=== PATIENT | female | born 1960 | race Caucasian/White ===

== ENCOUNTER → 2017-03-05 10:02 | Outpatient (CLI) | payer BC | END | disposition home or self-care (01) | LOC: D.CT 10:02 | DX: J44.9 Chronic obstructive pulmonary disease, unspecified (principal) ==

== ENCOUNTER 2017-05-20 10:43 | Emergency (ER) | payer BC ==
[2017-05-20 11:44] LABS: BASOPHILS 0.4 % (0-2); HEMATOCRIT 35.5 % (36.0-48.0); HEMOGLOBIN 11.9 g/dL (12-16); IMMATURE GRANULOCYTES 0.4 % (0-5); LYMPHOCYTES 27.3 % (15-50); MCH 30.6 pg (26.0-34.0); MCHC 33.5 g/dL (31.0-37.0); MCV 91.3 fL (80.0-100.0); MEAN PLATELET VOLUME 10.2 fL (7.4-10.4); MONOCYTES 7.4 % (2-11); NEUTROPHILS 60.5 % (40-80); PLATELET COUNT 245 10x3/uL (130-400); RBC 3.89 10x6/uL (4.00-5.40); WBC 5.5 10x3/uL (4.8-10.8)
[2017-05-20 12:03] LABS: ALBUMIN 3.8 g/dL (3.4-5.0); ALKALINE PHOSPHATASE 37 U/L (46-116); ALT (SGPT) 46 U/L (10-68); CALC OSMOLALITY 274 mosm/kg (275-300); CALCIUM 8.5 mg/dL (8.5-10.1); CARBON DIOXIDE 25.7 mmol/L (21.0-32.0); CHLORIDE - SERUM 102 mmol/L (98-107); CREATININE - SERUM 0.8 mg/dL (0.6-1.3); GLUCOSE 110 mg/dL (74-106); POTASSIUM - SERUM 3.6 mmol/L (3.5-5.1); PROTEIN - SERUM 7.1 g/dL (6.4-8.2); SODIUM 136 mmol/L (136-145); UREA NITROGEN 17 mg/dL (7-18); eGFR NON AFRICAN AMERICAN 78 mL/min (90-120)
== END 2017-05-20 16:16 | disposition home or self-care (01) ==
LOC: D.ER 10:43
PROVIDERS: Emergency Medicine
DX: R55 Syncope and collapse (principal); W19.XXXA Unspecified fall, initial encounter; Y93.89 Activity, other specified; Y92.89 Other specified places as the place of occurrence of the external cause; F31.89 Other bipolar disorder; E11.9 Type 2 diabetes mellitus without complications

== ENCOUNTER → 2018-03-10 18:08 | Outpatient (CLI) | payer BC ==
[~2018-03-10 18:08] MED LIST: ATIVAN1 MG PO; FOLIC ACID1 MG PO; OMEPRAZOLE20 M1 PO; PAXIL40 MG PO; SEROQUEL XR400 M1 PO; TRICOR145 MG PO
== END | disposition home or self-care (01) ==
LOC: D.MAMMO 03-04 14:00
DX: Z12.31 Encounter for screening mammogram for malignant neoplasm of breast (principal)

== ENCOUNTER 2018-05-08 08:34 | Emergency (ER) | payer BC ==
[~2018-05-08] VITALS: Ht 157.5 cm; Wt 79.5 kg
[2018-05-08 08:35] VITALS: Ht 157.5 cm; Wt 79.5 kg
[2018-05-08] MEDS ORDERED: PAXIL40 MG PO (08:36)
[2018-05-08] MEDS ORDERED: TRICOR145 MG PO (08:37)
[2018-05-08] MEDS ORDERED: OMEPRAZOLE20 M1 PO (08:37)
[2018-05-08] MEDS ORDERED: SEROQUEL XR400 M1 PO (08:38)
[2018-05-08] MEDS ORDERED: ATIVAN1 MG PO (08:39)
[2018-05-08] MEDS ORDERED: FOLIC ACID1 MG PO (08:40)
[2018-05-08 09:13] LABS: EOSINOPHILS 5.2 % (0-7); HEMATOCRIT 40.3 % (36.0-48.0); HEMOGLOBIN 14.2 g/dL (12-16); IMMATURE GRANULOCYTES 0.7 % (0-5); MCH 31.9 pg (26.0-34.0); MCHC 35.2 g/dL (31.0-37.0); MCV 90.6 fL (80.0-100.0); MEAN PLATELET VOLUME 9.9 fL (7.4-10.4); MONOCYTES 6.4 % (2-11); NEUTROPHILS 49.7 % (40-80); RBC 4.45 10x6/uL (4.00-5.40); RDW 12.8 % (11.5-14.5); WBC 5.8 10x3/uL (4.8-10.8)
[2018-05-08 09:20] LABS: PLATELET COUNT 302 10x3/uL (130-400)
[2018-05-08 09:29] LABS: ALBUMIN 4.1 g/dL (3.4-5.0); ALKALINE PHOSPHATASE 59 U/L (46-116); ALT (SGPT) 26 U/L (10-68); BILIRUBIN - TOTAL 0.18 mg/dL (0.2-1.3); CALC OSMOLALITY 278 mosm/kg (275-300); CALCIUM 8.7 mg/dL (8.5-10.1); CARBON DIOXIDE 27.8 mmol/L (21.0-32.0); CHLORIDE - SERUM 103 mmol/L (98-107); CREATININE - SERUM 0.5 mg/dL (0.6-1.3); GLUCOSE 115 mg/dL (74-106); POTASSIUM - SERUM 3.7 mmol/L (3.5-5.1); SODIUM 141 mmol/L (136-145); UREA NITROGEN 5 mg/dL (7-18); eGFR NON AFRICAN AMERICAN > 90 mL/min (90-120)
[2018-05-08 09:35] LABS: APPEARANCE CLEAR (CLEAR); BILIRUBIN NEGATIVE (NEGATIVE); COLOR YELLOW (YELLOW); GLUCOSE NEGATIVE (NEGATIVE); KETONE NEGATIVE (NEGATIVE); NITRITE NEGATIVE (NEGATIVE); PROTEIN NEGATIVE (NEGATIVE); SPECIFIC GRAVITY 1.005 (1.005-1.020); UROBILINOGEN NORMAL (NORMAL)
[2018-05-08 09:39] LABS: UDS - AMPHET NEGATIVE QUAL (NEGATIVE); UDS - BARB NEGATIVE QUAL (NEGATIVE); UDS - BENZO NEGATIVE QUAL (NEGATIVE); UDS - COCAINE NEGATIVE QUAL (NEGATIVE); UDS - OPIATE NEGATIVE QUAL (NEGATIVE); UDS - PCP NEGATIVE QUAL (NEGATIVE); UDS - THC NEGATIVE QUAL (NEGATIVE)
[2018-05-08 17:58] VITALS: BP 128/83
== END 2018-05-08 17:58 | disposition home or self-care (01) ==
LOC: D.ER 08:34
PROVIDERS: Family Medicine
DX: F10.129 Alcohol abuse with intoxication, unspecified (principal); K21.9 Gastro-esophageal reflux disease without esophagitis

== ENCOUNTER 2019-06-02 06:36 | Emergency (ER) | payer BC ==
[~2019-06-02] VITALS: Ht 157.5 cm; Wt 68.5 kg
[2019-06-02 06:40] VITALS: Ht 157.5 cm; Wt 68.5 kg
[2019-06-02] MEDS ORDERED: HYDROCODONE-A1 UDTA2 PO (07:13)
[2019-06-02 08:12] VITALS: BP 117/83
== END 2019-06-02 08:13 | disposition home or self-care (01) ==
LOC: D.ER 06:36
DX: S82.832A Other fracture of upper and lower end of left fibula, initial encounter for closed fracture (principal); W18.31XA Fall on same level due to stepping on an object, initial encounter; Y93.89 Activity, other specified; Y92.481 Parking lot as the place of occurrence of the external cause

== ENCOUNTER 2019-09-12 08:32 | Emergency (ER) | payer BC ==
[~2019-09-12] VITALS: Ht 157.5 cm; Wt 68.2 kg
[~2019-09-12 08:32] MED LIST changes: +HYDROCODONE-A1 UDTA2 PO
[2019-09-12 08:42] VITALS: Ht 157.5 cm; Wt 68.2 kg
[2019-09-12] MEDS ORDERED: VALIUM5 MG PO (08:43)
[2019-09-12] MEDS ORDERED: PAROXETINE HCL10 MG (08:44)
[2019-09-12] MEDS ORDERED: CYCLOBENZAPRINE10 MG PO (10:04)
[2019-09-12 10:12] VITALS: BP 126/87
== END 2019-09-12 10:14 | disposition home or self-care (01) ==
LOC: D.ER 08:32
DX: S00.83XA Contusion of other part of head, initial encounter (principal); W22.8XXA Striking against or struck by other objects, initial encounter; Y93.9 Activity, unspecified; Y92.9 Unspecified place or not applicable; M79.18 Myalgia, other site

== ENCOUNTER → 2019-09-19 14:05 | Outpatient (CLI) | payer BC ==
[2019-09-12 08:42] VITALS: BMI 27.5
[~2019-09-19 14:05] MED LIST changes: +CYCLOBENZAPRINE10 MG PO; +PAROXETINE HCL10 MG; +VALIUM5 MG PO
== END | disposition home or self-care (01) ==
LOC: D.MRI 13:30
PROVIDERS: ATTEND Orthopaedic Surgery
DX: S82.62XK Displaced fracture of lateral malleolus of left fibula, subsequent encounter for closed fracture with nonunion (principal)

== ENCOUNTER → 2019-09-28 12:32 | Outpatient (CLI) | payer BC ==
[2019-09-12 08:42] VITALS: BMI 27.5
== END | disposition home or self-care (01) ==
LOC: D.MAMMO 11:00
PROVIDERS: ATTEND Family Medicine
DX: Z12.31 Encounter for screening mammogram for malignant neoplasm of breast (principal)

== ENCOUNTER → 2021-01-29 06:55 | Outpatient (CLI) | payer BC ==
[2019-09-12 08:42] VITALS: BMI 27.5
[2021-01-29 07:38] LABS: HEMATOCRIT 28.5 % (36.0-48.0); HEMOGLOBIN 9.5 g/dL (12-16); LYMPHOCYTE ABS# 1.53 10x3/uL (1.18-3.74); MCH 29.1 pg (26.0-34.0); MCHC 33.3 g/dL (31.0-37.0); MCV 87.4 fL (80.0-100.0); MEAN PLATELET VOLUME 9.2 fL (7.4-10.4); NEUTROPHIL ABS# 2.81 10x3/uL (1.56-6.13); PLATELET COUNT 341 10x3/uL (130-400); RBC 3.26 10x6/uL (4.00-5.40); RDW 13.7 % (11.5-14.5); WBC 4.8 10x3/uL (4.8-10.8)
[2021-01-29 07:43] LABS: ALBUMIN 3.9 g/dL (3.4-5.0); ANION GAP 12.5 mmol/L (8-16); BILIRUBIN - TOTAL 0.32 mg/dL (0.2-1.3); CALCIUM 8.9 mg/dL (8.5-10.1); CARBON DIOXIDE 24.4 mmol/L (21.0-32.0); CREATININE - SERUM 0.9 mg/dL (0.6-1.3); POTASSIUM - SERUM 3.9 mmol/L (3.5-5.1); PROTEIN - SERUM 7.1 g/dL (6.4-8.2)
[2021-01-29 07:50] LABS: BILIRUBIN NEGATIVE (NEGATIVE); KETONE NEGATIVE (NEGATIVE); NITRITE NEGATIVE (NEGATIVE); UROBILINOGEN NORMAL mg/dL (< 2)
[2021-01-29 08:09] LABS: APTT 27.9 SECONDS (22.8-39.4); INR 1.11 (0.85-1.17); PROTIME 13.3 SECONDS (11.6-15.0)
[2021-01-29 12:13] LABS: EOSINOPHILS 1 % (0-7); LYMPHOCYTES 35 % (15-50); MONOCYTES 5 % (2-11); NEUTROPHILS 58 % (40-80); PLATELET ESTIMATE NORMAL
== END | disposition home or self-care (01) ==
LOC: D.LAB 06:55
PROVIDERS: ATTEND Orthopaedic Surgery
DX: M17.11 Unilateral primary osteoarthritis, right knee (principal)